=== PATIENT | male | born 1950 | race Caucasian/White ===

== ENCOUNTER 2023-12-07 04:51 | Emergency (ER) | payer MEDICARE, OTHER ==
[~2023-12-07] VITALS: Ht 172.7 cm; Wt 102.1 kg
[2023-12-07] MEDS ORDERED: LISI20 PO (05:32)
[2023-12-07] MEDS ORDERED: Inderal40 MG PO (05:33)
[2023-12-07] MEDS ORDERED: ZOCOR20 MG PO (05:33)
[2023-12-07] MEDS ORDERED: EUTHYROX50 MCG PO (05:34)
[2023-12-07] MEDS ORDERED: LEVSOD25 PO (05:34)
[2023-12-07 05:37] VITALS: BP 168/113
[2023-12-07 05:54] LABS: Influenza A, PCR NEGATIVE (NEGATIVE); Influenza B, PCR NEGATIVE (NEGATIVE); Resp Syncytial Virus, PCR NEGATIVE (NEGATIVE); SARS-Cov-2 (COVID-19) PCR, MMC NEGATIVE (NEGATIVE)
[2023-12-07] MEDS ORDERED: Doxycycline Mo100 M1 PO (06:19)
== END 2023-12-07 06:28 | disposition home or self-care (01) ==
LOC: ER 04:51
PROVIDERS: Emergency Medicine
DX: J18.9 Pneumonia, unspecified organism (principal); I10 Essential (primary) hypertension; Z79.899 Other long term (current) drug therapy; Z88.0 Allergy status to penicillin; Z88.2 Allergy status to sulfonamides; Z88.6 Allergy status to analgesic agent
CPT/HCPCS: 0241U; 71046; 93005; 93010; 94640; 94664; 99284-25; A9270

== ENCOUNTER 2024-05-22 20:57 | Emergency (ER) | payer MEDICARE, OTHER ==
[~2024-05-22] VITALS: Ht 170.2 cm; Wt 104.3 kg
[~2024-05-22 20:57] MED LIST: Doxycycline Mo100 M1 PO; EUTHYROX50 MCG PO; Inderal40 MG PO; LEVSOD25 PO; LISI20 PO; ZOCOR20 MG PO
[2024-05-22 21:11] VITALS: BP 120/84
== END 2024-05-22 21:47 | disposition left against medical advice (07) ==
LOC: ER 20:57
DX: M25.551 Pain in right hip (principal); Z53.29 Procedure and treatment not carried out because of patient's decision for other reasons
CPT/HCPCS: 99281

== ENCOUNTER 2024-05-25 01:39 | Emergency (ER) | payer MEDICARE, OTHER ==
[~2024-05-25] VITALS: Ht 170.2 cm; Wt 100.2 kg
[2024-05-25] MEDS ORDERED: Lidocaine 4% 1 Patch TOP ONE (06:00)
[2024-05-25] MEDS ORDERED: Dexamethasone Sod Phos 10 MG/ML 1ML VIAL PO ONE (06:00)
[2024-05-25] MEDS ORDERED: LIDO700A20 TOP (06:10)
[2024-05-25] MEDS ORDERED: TRAM50 PO (06:10)
[2024-05-25 06:29] VITALS: BP 157/86
== END 2024-05-25 06:32 | disposition home or self-care (01) ==
LOC: ER 01:39
DX: M16.0 Bilateral primary osteoarthritis of hip (principal); M51.36 Other intervertebral disc degeneration, lumbar region; Z88.0 Allergy status to penicillin; Z88.8 Allergy status to other drugs, medicaments and biological substances; Z88.2 Allergy status to sulfonamides; Z79.899 Other long term (current) drug therapy; I10 Essential (primary) hypertension; E03.9 Hypothyroidism, unspecified
CPT/HCPCS: 99283-25; A9270; J1100

== ENCOUNTER 2024-06-01 20:55 | Emergency (ER) | payer MEDICARE, OTHER ==
[~2024-06-01] VITALS: Ht 170.2 cm; Wt 99.8 kg
[~2024-06-01 20:55] MED LIST changes: +LIDO700A20 TOP; +TRAM50 PO
[2024-06-01] MEDS ORDERED: Magnesium Citrate 300 ML BTL PO ONE (23:30)
[2024-06-01] MEDS ORDERED: Lactulose 200 GM/300 ML Enema 300ML BTL PR ONE (23:35)
[2024-06-02] MEDS ORDERED: MIRALAX11910 PO (00:53)
[2024-06-02] MEDS ORDERED: ADULT GLYCERIN1 EACH PR (00:53)
[2024-06-02] MEDS ORDERED: BISA5EC PO (00:53)
[2024-06-02 01:00] VITALS: BP 144/70
== END 2024-06-02 01:00 | disposition home or self-care (01) ==
LOC: ER 20:55
DX: K59.00 Constipation, unspecified (principal); E78.00 Pure hypercholesterolemia, unspecified; E03.9 Hypothyroidism, unspecified; I10 Essential (primary) hypertension; Z79.899 Other long term (current) drug therapy; Z88.2 Allergy status to sulfonamides; Z88.0 Allergy status to penicillin; Z88.6 Allergy status to analgesic agent
CPT/HCPCS: 99283; A9270

== ENCOUNTER 2024-10-17 14:37 | Emergency (ER) | payer MEDICARE, OTHER ==
[~2024-10-17] VITALS: Ht 170.2 cm; Wt 104.3 kg
[~2024-10-17 14:37] MED LIST changes: +ADULT GLYCERIN1 EACH PR; +BISA5EC PO; +MIRALAX11910 PO
[2024-10-17 15:37] VITALS: BP 164/90
== END 2024-10-17 15:41 | disposition home or self-care (01) ==
LOC: ER 14:37
DX: I10 Essential (primary) hypertension (principal); E78.00 Pure hypercholesterolemia, unspecified; E03.9 Hypothyroidism, unspecified; Z79.899 Other long term (current) drug therapy; Z88.2 Allergy status to sulfonamides; Z88.0 Allergy status to penicillin; Z88.6 Allergy status to analgesic agent
CPT/HCPCS: 99283

== ENCOUNTER 2024-11-27 16:52 | Emergency (ER) | payer MEDICARE, OTHER ==
[~2024-11-27] VITALS: Ht 170.2 cm; Wt 104.3 kg
[2024-11-27 17:33] LABS: BASOPHILS ABSOLUTE AUTO 0.03 K/mm3 (0.00-0.23); BASOPHILS PERCENT AUTO 0 % (0-2); EOSINOPHILS ABSOLUTE AUTO 0.15 K/mm3 (0.00-0.68); EOSINOPHILS PERCENT AUTO 2 % (0-6); Hematocrit 43.1 % (37.0-53.0); Hemoglobin 15.2 g/dL (13.5-17.5); IMMATURE GRAN ABSOLUTE AUTO 0.02 K/mm3 (0.00-0.10); IMMATURE GRAN PERCENT AUTO 0 % (0-1); LYMPHOCYTES PERCENT AUTO 19 % (21-46); MONOCYTES ABSOLUTE AUTO 0.55 K/mm3 (0.16-1.47); MONOCYTES PERCENT AUTO 8 % (4-13); Mean Corpuscular HGB 31.5 pg (26.0-34.0); Mean Corpuscular HGB Conc 35.3 g/dL (31.5-36.5); Mean Corpuscular Volume 89 fL (80-100); Mean Platelet Volume 9.8 fL (9.1-12.4); NEUTROPHILS ABSOLUTE AUTO 4.79 K/mm3 (1.96-9.15); NEUTROPHILS PERCENT AUTO 70 % (41-73); Platelet Count 158 K/mm3 (150-400); RDW Coefficient Variation 11.7 % (11.7-14.2); RDW Standard Deviation 37.7 fL (35.1-46.3); Red Blood Cell Count 4.83 M/mm3 (4.30-5.90); White Blood Cell Count 6.84 K/mm3 (4.00-11.30)
[2024-11-27 17:58] LABS: Albumin, Blood 4.7 g/dL (3.4-5.0); Albumin/Globulin Ratio 1.2 (0.8-1.8); Bilirubin, Total 0.7 mg/dL (0.1-1.0); Bun/Creatinine Ratio 21.4 (12.0-20.0); Calcium, Blood 9.9 mg/dL (8.5-10.1); Creatinine, Blood 0.8 mg/dL (0.60-1.20); Potassium, Blood 3.6 mmol/L (3.5-5.5); Total Protein, Blood 8.7 g/dL (6.4-8.2)
[2024-11-27 21:30] VITALS: BP 166/81
== END 2024-11-27 21:50 | disposition home or self-care (01) ==
LOC: ER 16:52
PROVIDERS: Student in an Organized Health Care Education/Training Program
DX: R07.89 Other chest pain (principal); I10 Essential (primary) hypertension; E03.9 Hypothyroidism, unspecified; E78.00 Pure hypercholesterolemia, unspecified; M19.90 Unspecified osteoarthritis, unspecified site; Z88.2 Allergy status to sulfonamides; Z88.0 Allergy status to penicillin; Z88.6 Allergy status to analgesic agent; Z79.890 Hormone replacement therapy; Z79.899 Other long term (current) drug therapy; Z59.89 Other problems related to housing and economic circumstances
CPT/HCPCS: 71045; 80053; 84484; 85025; 93005; 93010; 99285-25

== ENCOUNTER 2025-01-22 05:33 | Emergency (ER) | payer MEDICARE, OTHER ==
[~2025-01-22] VITALS: Ht 172.7 cm; Wt 104.3 kg
[2025-01-22] MEDS ORDERED: Lidocaine 4% 1 Patch TOP ONE (06:45)
[2025-01-22] MEDS ORDERED: Acetaminophen 500 MG Tab PO ONE (06:45)
[2025-01-22] MEDS ORDERED: CYCL10 PO (07:08)
[2025-01-22] MEDS ORDERED: LIDO700A20 TOP (07:08)
[2025-01-22 07:33] VITALS: BP 108/83
== END 2025-01-22 07:31 | disposition home or self-care (01) ==
LOC: ER 05:33
DX: M62.830 Muscle spasm of back (principal); I10 Essential (primary) hypertension; G25.0 Essential tremor; E03.9 Hypothyroidism, unspecified; E78.00 Pure hypercholesterolemia, unspecified; Z88.2 Allergy status to sulfonamides; Z88.0 Allergy status to penicillin; Z88.8 Allergy status to other drugs, medicaments and biological substances; Z79.899 Other long term (current) drug therapy
CPT/HCPCS: 20552; 99283-25; A9270

== ENCOUNTER 2025-03-01 14:45 | Observation (INO) | payer MEDICARE, OTHER ==
[~2025-03-01] VITALS: Ht 172.7 cm; Wt 102.5 kg
[~2025-03-01 14:45] MED LIST changes: +CYCL10 PO
[2025-03-01 16:31] LABS: Albumin, Blood 3.9 g/dL (3.4-5.0); Albumin/Globulin Ratio 1.1 (0.8-1.8); Bilirubin, Total 0.7 mg/dL (0.1-1.0); Calcium, Blood 9.4 mg/dL (8.5-10.1); Creatinine, Blood 0.89 mg/dL (0.60-1.20); Globulin, Blood 3.4 g/dL (2.2-4.0); Potassium, Blood 3.3 mmol/L (3.5-5.5); Total Protein, Blood 7.3 g/dL (6.4-8.2)
[2025-03-01 16:34] LABS: International Normalized Ratio 1.11; Prothrombin Time Results 11.8 Sec (9.7-11.5)
[2025-03-01] MEDS ORDERED: Acetylcysteine 15,000 MG in Dextrose 5% 200 ML IV ONE (18:00)
[2025-03-01] MEDS ORDERED: SYNTHROID50 MC1 PO (18:48)
[2025-03-01] MEDS ORDERED: LIPITOR80 MG PO (18:49)
[2025-03-01] MEDS ORDERED: NEURONTIN300 MG PO (18:49)
[2025-03-01] MEDS ORDERED: HYDCHL12.5 PO (18:50)
[2025-03-01] MEDS ORDERED: AMLODIPINE BESYL5 MG PO (18:50)
[2025-03-01] MEDS ORDERED: Famotidine 10 MG/ML 2ML Vial IV ONE (18:55)
[2025-03-01] MEDS ORDERED: DiphenhydrAMINE HCl 50 MG/ML 1ML Vial IV ONE (18:55)
[2025-03-01] MEDS ORDERED: DEXTROSE 5% IV SCH ×2 (19:00→23:00)
[2025-03-01] MEDS ORDERED: ACETYLCYSTEINE IV SCH ×2 (19:00→23:00)
[2025-03-01 20:42] LABS: Albumin, Blood 3.6 g/dL (3.4-5.0); Bilirubin, Total 0.6 mg/dL (0.1-1.0); Calcium, Blood 9.5 mg/dL (8.5-10.1); Creatinine, Blood 0.72 mg/dL (0.60-1.20); Globulin, Blood 3.7 g/dL (2.2-4.0); Potassium, Blood 3.4 mmol/L (3.5-5.5); Total Protein, Blood 7.3 g/dL (6.4-8.2)
[2025-03-01] MEDS ORDERED: RX Prepack 6 Tabs Oxycodone 5mg UD ONE (21:00)
[2025-03-01] MEDS ORDERED: NAPR500 PO (21:02)
[2025-03-01 21:35] VITALS: BP 139/89
== END 2025-03-01 21:28 | disposition home or self-care (01) ==
LOC: ER 14:45 → MEDS 14:47
PROVIDERS: Student in an Organized Health Care Education/Training Program; ADMIT Internal Medicine
DX: T39.1X1A Poisoning by 4-Aminophenol derivatives, accidental (unintentional), initial encounter (principal); M16.11 Unilateral primary osteoarthritis, right hip; S73.101A Unspecified sprain of right hip, initial encounter; I10 Essential (primary) hypertension; E03.9 Hypothyroidism, unspecified; Z87.891 Personal history of nicotine dependence; Z88.2 Allergy status to sulfonamides; Z88.0 Allergy status to penicillin; Z88.6 Allergy status to analgesic agent; Z79.890 Hormone replacement therapy; Z79.899 Other long term (current) drug therapy; X58.XXXA Exposure to other specified factors, initial encounter
CPT/HCPCS: 80053; 85610; 96365; 96375; 99284-25; A9270; G0378; G0480; J0132; J1200; J7060

== ENCOUNTER 2025-04-04 17:39 | Emergency (ER) | payer MEDICARE, OTHER ==
[~2025-04-04] VITALS: Ht 172.7 cm; Wt 100.2 kg
[~2025-04-04 17:39] MED LIST changes: +AMLODIPINE BESYL5 MG PO; +HYDCHL12.5 PO; +LIPITOR80 MG PO; +NAPR500 PO; +NEURONTIN300 MG PO; +SYNTHROID50 MC1 PO
[2025-04-04 17:50] VITALS: BP 140/91
[2025-04-04] MEDS ORDERED: Ketorolac Tromethamine 15mg Vial IM ONE (18:55)
[2025-04-04] MEDS ORDERED: Lidocaine 4% 1 Patch TOP ONE (19:20)
[2025-04-04] MEDS ORDERED: Naproxen 250 MG TAB PO ONE (19:55)
== END 2025-04-04 19:23 | disposition home or self-care (01) ==
LOC: ER 17:39
DX: M54.42 Lumbago with sciatica, left side (principal); E78.00 Pure hypercholesterolemia, unspecified; E03.9 Hypothyroidism, unspecified; I10 Essential (primary) hypertension; Z79.899 Other long term (current) drug therapy; Z88.2 Allergy status to sulfonamides; Z88.0 Allergy status to penicillin; Z88.6 Allergy status to analgesic agent
CPT/HCPCS: 99283; A9270; J1885